=== PATIENT | female | born 1985 | race Caucasian/White ===

== ENCOUNTER 2018-07-28 10:37 | Emergency (ER) | payer OTHER ==
[2018-07-28 12:18] VITALS: BP 111/70
--- NOTE | 2018-07-28 13:02 | UC ---
Complaint Female HPI - HPI Summary HPI Summary: Dysuria since yesterday. Patient has a new sexual partner and she just started expressing some whitish yellow vaginal discharge as well. She denies any abdominal pain. States she has a history of urinary tract infections however has not had one "for years". - History Of Current Complaint Chief Complaint: UCGU Stated Complaint: URINARY Time Seen by Provider: 07/28/18 12:22 Hx Obtained From: Patient Hx Last Menstrual Period: 07/07/18 ?: No Onset/Duration: Gradual Onset Timing: Intermittent Severity Initially: Mild Severity Currently: Mild Pain Intensity: 2 Character: Burning Aggravating Factor(s): Urination Alleviating Factor(s): Other Associated Signs And Symptoms: Positive: Vaginal Bleeding/Discharge - States she has mild whitish yellow vaginal discharge. Related Hx: - 3 para 3 - Allergies/Home Medications Allergies/Adverse Reactions: Allergies Allergy/AdvReac Type Severity Reaction Status Date / Time No Known Allergies Allergy Verified 07/28/18 12:13 PMH/Surg Hx/FS Hx/Imm Hx Previously Healthy: Yes GI/ History: Other - Frequent urinary tract infections however has not had one for several years. Other History Of: Negative For: HIV, Hepatitis C - Surgical History Surgical History: Yes Surgery Procedure, Year, and Place: urethral stent - Family History Known Family History: Positive: None Negative: Seizure Disorder, Blood Disorder - Social History Alcohol Use: Occasionally Substance Use Type: None Smoking Status (MU): Never Smoked Tobacco - Immunization History Most Recent Influenza Vaccination: 03/04/13 Most Recent Tetanus Shot: 03/04/13 Most Recent Pneumonia Vaccination: n/a Review of Systems All Other Systems Reviewed And Are Negative: Yes Constitutional: Positive: Negative Skin: Positive: Negative Eyes: Positive: Negative ENT: Positive: Negative Respiratory: Positive: Negative Cardiovascular: Positive: Negative Gastrointestinal: Positive: Negative Genitourinary: Positive: Dysuria, Frequency, Urgency, Vaginal/Penile Discharge - Whitish yellow vaginal discharge. Denies any vaginal itching. Motor: Positive: Negative Neurovascular: Positive: Negative Musculoskeletal: Positive: Negative Neurological: Positive: Negative Psychological: Positive: Negative Is Patient Immunocompromised?: No Physical Exam Triage Information Reviewed: Yes Appearance: Well-Appearing, No Pain Distress, Well-Nourished Vital Signs: Initial Vital Signs Temp 98.4 F 07/28/18 12:13 Pulse 65 07/28/18 12:13 Resp 16 07/28/18 12:13 BP 111/70 07/28/18 12:13 Pulse Ox 100 07/28/18 12:13 Vital Signs Reviewed: Yes Eye Exam: Normal Respiratory Exam: Normal Cardiovascular Exam: Normal Abdomen Description: Positive: Nontender, No Organomegaly, Soft. Negative: Distended, Guarding Bowel Sounds: Positive: Present Pelvic Exam: Positive: External Exam Normal, Bimanual Exam Normal - Cultures obtained, patient tolerated procedure well., No Cerv. Motion Tender, Discharge - Minimal whitish, light yellow discharge.. Negative: Active Bleeding Musculoskeletal Exam: Normal Neurological Exam: Normal Psychological Exam: Normal Skin Exam: Normal Complaint Female Dx - Course Course Of Treatment: Patient has been comfortable here. Her urine was positive for urinary tract infection. Although she had minimal whitish vaginal discharge , cultures were obtained and she will be called with results of those cultures. - Differential Dx/Diagnosis Differential Diagnosis/HQI/PQRI: Urinary Tract Infection Provider Diagnosis: UTI (urinary tract infection) Discharge - Sign-Out/Discharge Documenting (check all that apply): Patient Departure All imaging exams completed and their final reports reviewed: No Studies - Discharge Plan Condition: Good Disposition: HOME Prescriptions: Phenazopyridine TAB* [Pyridium 100 mg TAB*] 100 mg PO TID 2 Days #6 tab Sulfamethox/Trimethoprim DS* [Bactrim DS 800/160 TAB*] 1 tab PO BID 5 Days #10 tab Patient Education Materials: Urinary Tract Infection in Women (DC) Referrals: Bro Cruz MD [Primary Care Provider] - Additional Instructions: Increase fluids. Take the medication with food. If you develop fever, chills, back pain, vomiting and unable keep medicine down or to follow-up with the emergency room. We will call you if the culture results come back positive. Always wipe from front to back. Avoid using perfumed toilet paper. - Billing Disposition and Condition Condition: GOOD Disposition: Home - Attestation Statements Provider Attestation: I was available for consult. This patient was seen by the JAZMINE. The patient was not presented to, seen by, or examined by me. -Radha
[2018-07-29 13:06] LABS: Trichomonas vaginalis Result Negative (Negative)
[2018-07-29 13:26] LABS: Neisseria gonorrhoeae (GC) RNA Negative (Negative)
--- NOTE | 2018-07-29 14:57 | UC ---
- Progress Note Progress Note: Vaginal swab comes back positive for chlamydia. Patient is on Bactrim for presumed UTI. Nursing to call patient and inform her of the chlamydia diagnosis. Patient's partner also needs to get treated. I have called in a prescription for doxycycline 100 mg twice a day for 7 days. Course/Dx - Diagnoses Provider Diagnoses: UTI (urinary tract infection) Discharge - Sign-Out/Discharge Documenting (check all that apply): Patient Departure All imaging exams completed and their final reports reviewed: No Studies - Discharge Plan Condition: Good Disposition: HOME Prescriptions: DOXYcycline CAP(*) [DOXYcycline 100MG CAP(*)] 100 mg PO BID #14 cap Phenazopyridine TAB* [Pyridium 100 mg TAB*] 100 mg PO TID 2 Days #6 tab Sulfamethox/Trimethoprim DS* [Bactrim DS 800/160 TAB*] 1 tab PO BID 5 Days #10 tab Patient Education Materials: Urinary Tract Infection in Women (DC) Referrals: Bro Cruz MD [Primary Care Provider] - Additional Instructions: Increase fluids. Take the medication with food. If you develop fever, chills, back pain, vomiting and unable keep medicine down or to follow-up with the emergency room. We will call you if the culture results come back positive. Always wipe from front to back. Avoid using perfumed toilet paper. - Billing Disposition and Condition Condition: GOOD Disposition: Home
== END 2018-07-28 13:07 | disposition home or self-care (01) ==
LOC: UCCORT 10:37
DX: N39.0 Urinary tract infection, site not specified (principal); A74.9 Chlamydial infection, unspecified
CPT/HCPCS: 81003; 87077; 87086; 87186; 87480; 87491; 87510; 87591; 87661; 99212; G0463